=== PATIENT | male | born 1985 | race Caucasian/White ===

== ENCOUNTER 2022-06-18 00:39 | Emergency (ER) | payer OTHER, SELFPAY ==
[2022-06-18 00:46] VITALS: BP 137/79; PULSE 74; RESP 18; TEMP 36.6; O2SAT 99; BMI 33.9
--- NOTE | 2022-06-18 00:58 | ED.GENADULT ---
HPI - General Adult General Time Seen by Provider: 00:58 Date Seen: 06/18/22 Chief complaint: Ear/Nose/Throat Problem Stated complaint: Pain right ear/dizzy Time Seen by Provider: 06/18/22 00:43 Source: patient, RN notes reviewed and old records reviewed Mode of arrival: ambulatory Limitations: no limitations History of Present Illness HPI narrative: 36-year-old male comes in today with ear pain and dizziness. Patient felt fine when he went to bed and woke up with right ear pain the dizziness, muffled hearing, and vomiting. No sinus congestion, no sore throat. Denies fevers or chills. Denies trauma. No head pain, no numbness or tingling in the arms or legs, no weakness. Has not taken anything for his symptoms. Related Data Home Medications Medication Instructions Recorded Confirmed No Known Home Medications 06/18/22 06/18/22 Allergies Allergy/AdvReac Type Severity Reaction Status Date / Time No Known Drug Allergies Allergy Verified 06/18/22 00:49 Review of Systems Status of ROS: Reports: 10 or more systems reviewed and unremarkable except as noted in History and below Exam Narrative: Exam Narrative: General: well nourished , NAD Head: Atraumatic and normocephalic ENT: External ears and external nose are normal, left tympanic membrane pearly martins, right tympanic membrane is bulging and erythematous. No erythema, induration, or tenderness over the mastoid Eyes: Conjunctiva clear, pupils are equal reactive, external ocular motions are intact Neck: Full spontaneous range of motion of the neck Lungs: No respiratory distress Musculoskeletal: No tenderness or deformity Neurologic: No gross focal neurologic deficits Skin: No rashes Psych: Mood and affect are appropriate Const: Vital Signs, click to edit/add: Vital Signs - 24 hr 06/18/22 00:46 Temperature 97.9 F Pulse Rate [Right Pulse Oximeter] 74 Respiratory Rate 18 Blood Pressure [Ri ght Upper Arm] 137/79 Pulse Oximetry 99 Oxygen Delivery Me thod Room Air Course Course Hospital Course: Patient seen examined, prior records are reviewed. Patient with right ear pain, vertigo, in decreased hearing. On exam, right tympanic membrane is erythematous and bulging. Symptoms are consistent with otitis media with labyrinthitis. Patient will be started on antibiotic, steroid, and Zofran for symptom management. Vital Signs Vital signs: Initial Vital Signs Temperature 97.9 F 06/18/22 00:46 Temperature Source Temporal Artery Scan 06/18/22 00:46 Pulse Rate 74 06/18/22 00:46 Respiratory Rate 18 06/18/22 00:46 Blood Pressure 137/79 06/18/22 00:46 Blood Pressure Mean 98 06/18/22 00:46 Blood Pressure Position Sitting 06/18/22 00:46 Pulse Oximetry 99 06/18/22 00:46 Oxygen Delivery Method 06/18/22 00:46 Vital Signs Temperature 97.9 F 06/18/22 00:46 Pulse Rate 74 06/18/22 00:46 Respiratory Rate 18 06/18/22 00:46 Blood Pressure 137/79 06/18/22 00:46 Pulse Oximetry 99 06/18/22 00:46 Oxygen Delivery Method 06/18/22 00:46 Temperature 97.9 F 06/18/22 00:46 Pulse Rate 74 06/18/22 00:46 Respiratory Rate 18 06/18/22 00:46 Blood Pressure 137/79 06/18/22 00:46 Pulse Oximetry 99 06/18/22 00:46 Oxygen Delivery Method 06/18/22 00:46 Medical Decision Making Medical Records Medical records reviewed: Yes I reviewed the patient's medical records Lab Data Lab results reviewed: Yes I reviewed the patient's lab results Discharge Plan Discharge Clinical Impression: Otitis media, Acute labyrinthitis Patient Disposition: Home, Self-Care Condition: Stable Instructions: Labyrinthitis (ED), Ear Infection (ED) Additional Instructions: Take Tylenol ibuprofen as needed for pain. Take antibiotics and steroid as prescribed, Zofran as needed for nausea and dizziness. Activity Level: No Restrictions Discharge Diet: Regular Prescriptions: No Action No Known Home Medications Stand Alone Forms: [email or web address] Info Instructions
[2022-06-18 01:41] VITALS: BP 137/79; PULSE 74; RESP 18; TEMP 36.6
== END 2022-06-18 01:25 | disposition home or self-care (01) ==
PROVIDERS: Emergency Provider Family Medicine
DX: H66.91 Otitis media, unspecified, right ear (principal); H83.01 Labyrinthitis, right ear
CPT/HCPCS: 99283; 99284